=== PATIENT | male | born 1950 | race Caucasian/White ===

== ENCOUNTER 2017-11-30 13:30 | Outpatient (RCR) | payer MEDICARE, SELFPAY ==
--- NOTE | 2017-11-08 14:14 | IE_ITS ---
Date: 11/08/17 Referring: Craig Mccormick MD M.D. Diagnosis: (R) hip OA, TKR and Obesity P.T. Diagnosis: Difficulty walking, difficulty changing positions. SUBJECTIVE: History of Present Illness: Pt describes himself as a recently retired male who used to work in the [employer] industry. He states that he has had years of hip and knee OA but initially he though that his knees were much more of the issue, however within the last year he has noticed that his hips have become incredibly more of an issue with his walking. He struggled with his weight for most of his life he has had a lap band procedure performed in the past and has lost a significant amount of weight from that. However with the significant degeneration of his hip joint he is now a candidate for total hip replacement however it appears that he is struggle to find someone to perform the procedure due to his high BMI. He had a cardiology check up where they wanted to monitor him due to his progressive shortness of breath with activity but he passed the nuclear stress test well and has been clear for exercise involvement. He states that he is more comfortable performing exercises in the pool and he would like to get back to that arrangement. Pain Ratin/10 Prior Level of Function: Walking with only a cane. Current Level of Function: Walking only a couple 100 ft with a walker. Previous Treatment: Nothing yet for this issue. Social: He live sin [facility] with his . Comorbidities: Morbid obesity, significant osteoarthritis. Medications: Medications have been reviewed and you can observe an electronic medical record for full details. Quality of Life: __X__ Good Standardized Measures: LEFS score: __93%__ OBJECTIVE: Posture: In standing, pt is a morbidly obese male with a WBOS, a slightly anterio flexed posture through the trunk. Gait: He ambulates with use of a 4 wheeled rolling walker, he has an increase in his anterioflexed posture through the trunk and widened SOFIYA and virtually no hip extension. He actually circumducts the hip slightly with his swing phase of gait. Palpation: He is tender to palpation through the greater trochanter as well as over the anterior femoral acetabular joint with deep palpation. ROM: Hip flexion 85-90* (B) ER 20* through the (R) and 25* through the (L) with discomfort at end range. Hip IR essentially 0-5* through the (R) side with pain at end range, 10* through the (L) Knee ROM 0* of extension and 90* of flexion. Ankle ROM WNL Strength: Hip flexion 3-/5 (R), 4/5 (L) Quads 4+/5 (B) Hamstrings 4+/5 (B) Dorsiflexion 5/5 Plantarflexion 5/5 Glute Med 3-/5 (B) Neuro: Pt intact to light touch and sensation through LE dermatomes, motor control appears intact through associated myotomes and pt demonstrates appropriate proprioception and kinesthetic awareness. Sit to stand pt is unable to complete a sit to stand from 90 * of knee flexion without use of the hands. 6 minute walk test 231 ft, TUG 42 seconds. Treatment: Tx today included the initial evaluation and assessment of functional abilities as well as training in a formal exercise program. Pt demonstrated verbal acknowledgement and technique demonstration. IE: [id number] Direct treatment time: 60 minutes Total treatment time: 60 minutes ASSESSMENT: Patient is a 67-year-old male with a hx of mild health conditions effecting function, referred for PT services with the diagnosis of hip OA, TKR and Obesity. Patient presents with clinical signs and symptoms consistent with significant mechanical limitation to ambulatory ability due to degenerative changes, as demonstrated by the following impairment level findings: 6 minutes walk test only 231 ft, unable to perform a sit to stand from 90* of knee flexion , TUG 42 seconds, significant strength deficits through the hip flexors and abductors. Impairments are contributing to the following functional limitations : Virtually no long distance ambulation even with four wheeled walker for assisted device. Patient is assessed as: ____ Low 53168 __X__ Moderate 24799 ____ High 54985 complexity, based on the following: History: High BMI, OA, Lap Band procedure Examination: 6 minute walk test 231 ft, TUG 42 seconds, significant strength deficits through the hip and LE. Presentation: X Evolving Decision-Making: X Moderate complexity Disability based on the fact that pt has an LEFS of 93% disability. __X__ Patient requires skilled PT intervention to remediate the above functional limitations to return to: __X__ Premorbid level of function Prognosis: __X__ Good as evidence suggests improvement of functional abilities with compliance to a detailed HEP tailored to his dx and following through with PT intervention. G-Codes: Patient's primary functional limitation is in the category of: __X__ Mobility - walking and moving around : [id number] this is justified by pt only being able to walk 231 ft via 6 minute walk test. Projected goal: __X__ Mobility - walking and moving around: [id number] to return to his premorbid level of function considering age related deficits. STG: __2__ weeks. 1. Pt (I) in HEP both verbally and with ideal technique demonstration. LTG: __6__ weeks. 1. Pt able to negotiate walk up of 1000 ft via 6 minute walk test. 2. Lower TUG time interval to less than 20 seconds. PLAN: Patient to be seen 2 x per week, for 6 weeks, adjusting frequency of visits per patient symptoms and response to treatment. Treatment to include: X Manual therapy - [id number]: Utilized for enhancing muscle extensibility and improving joint arthrokinematics. X Ultrasound/ Estim available for pain modulation as necessary. X Aquatic Therapy- Will be utilized for gravity minimized movement and cardiovascular conditioning. X Therapeutic exercise - [id number] tactile cues, verbal education and advanced movement correctives for establishing muscle control and stability through the core and pelvic girdle. Pt will be monitored for compliance to HEP and pt status will be updated accordingly. Plan may be modified as symptoms dictate. Thank you for this referral. Please do not hesitate to contact me with any questions or concerns regarding this patient's plan of care. Craig Mccormick MD please sign below if you are in agreement with this patients plan of care,
--- NOTE | 2017-11-15 10:33 | PTTR_ITS ---
DATE: 11/14/17 SUBJECTIVE: Rodrigo states that he is looking forward to aquatic therapy, as he has not been able to get much exercise due to pain with land exercise. OBJECTIVE: * [X] Aquatic Therapy - (13605 x2): Patient completed a therapeutic exercise program in an aquatic setting for LE strengthening and general conditioning with decompression for pain relief, as per flow sheet. Patient required skilled instruction for proper exercise performance and to avoid compensatory movement patterns. Patient ends with biking, LE abd/add, and LE flex/ext. Direct treatment time: 30 minutes Total treatment time: 40 minutes
--- NOTE | 2017-11-16 15:41 | PTTR_ITS ---
DATE: 11/16/17 SUBJECTIVE: Vinod states that he felt good, although tired, after his last aquatic therapy session. OBJECTIVE: * [X] Aquatic Therapy - (74227 x1): Patient completed a therapeutic exercise program in an aquatic setting for global strengthening and general conditioning, as per flow sheet. Patient was able to tolerate a progression in his program today, see flow sheet for modifications made to reps and resistance. Patient continues to require cuing for posture and appropriate movement mechanics. Patient ends with deep end biking, LE flex/ext, and LE abd/ add. Direct treatment time: 20 minutes Total treatment time: 40 minutes
--- NOTE | 2017-11-21 13:09 | NT_ITS ---
11/21/17 Patient arrived 20 minutes late for today's scheduled aquatic therapy session. He was given the option to complete part of his program, however, he chose not to, but plans to return for his next scheduled aquatic therapy session. Ileana Wong, SLIVER LAPPER
--- NOTE | 2017-11-23 09:02 | PTTR_ITS ---
DATE: 11/23/17 SUBJECTIVE: Rodrigo states that he has been feeling pretty good following his aquatic therapy sessions. OBJECTIVE: * [X] Aquatic Therapy - (78102 x1): Patient completed a therapeutic exercise program in an aquatic setting for global strengthening and general conditioning, as per flow sheet. Patient tolerated a slight progression in his program today, modifications made to reps are noted on flow sheet. Patient required cuing for core activation and appropriate posture throughout session. Patient ends with deep water biking, LE flex/ext, and LE abd/add. Direct treatment time: 20 minutes Total treatment time: 35 minutes
--- NOTE | 2017-11-27 16:31 | PTTR_ITS ---
DATE: 11/27/17 SUBJECTIVE: I am doing okay. Just trying to figure out the pool. OBJECTIVE: Therapeutic procedures (48742x7). * X HEP review: Technique review and corrective modification where appropriate.] * X Provided skilled instruction in proper exercise performance: [] * X Provided skilled manual cues to facilitate proper muscle recruitment and/ or movement pattern: [] * X Other: Patient completed a 6MWT with instruction and able to ambulate 349 feet with a break at the 3 min kleber. He was trained in intermittent walking and standing walk back hip motions. Direct treatment time: 25 minutes of direct patient care.
--- NOTE | 2017-11-28 11:06 | AT_ITS ---
11/28/17 ATx2 See flow sheet. Complete aquatic therapy routine for whole body conditioning (B ) hip girdle stabilization with focus of (R) hip girdle cardiovascular activities, skilled cueing throughout for proper exercise performance. Made some progressions today. Total Time 60 minutes Direct 30 minutes and able to complete majority of program with minimal supervision as instructed.
--- NOTE | 2017-11-30 14:58 | AT_ITS ---
11/30/17 Aquatic Therapy [id number]: See flow sheet. Skilled cueing required to encourage hip girdle and core utilization vs. dependance on hand. Also progressed to encourage SLS during Hip PRE's activities, vs. returning to static stance between each rep. Patient is able to do warm up and cool down activities with minimal supervision. Direct treatment time: 30 minutes Total treatment time: 60 minutes
== END 2017-12-01 23:59 | disposition home or self-care (01) ==
LOC: PT 13:30
PROVIDERS: PCP Family Medicine; Referring Provider Orthopaedic Surgery; Visit Provider Orthopaedic Surgery
DX: M16.11 Unilateral primary osteoarthritis, right hip (principal); Z96.651 Presence of right artificial knee joint; E66.9 Obesity, unspecified
CPT/HCPCS: 97110; 97113; 97162; G8978

== ENCOUNTER 2018-11-28 15:19 | Outpatient (CLI) | payer MEDICARE, SELFPAY ==
--- NOTE | 2018-11-28 15:25 | DI.RAD_ITS ---
SYMPTOM/DIAGNOSIS: PAIN RIGHT KNEE: Three views. There is marked narrowing of the medial femoral tibial joint space with flattening of the articular surfaces. Para articular spurring is seen involving all three joint compartments. There is an enthesophyte at the superior patella. The bones are intact. IMPRESSION: Moderately severe osteoarthritis of the right knee.
--- NOTE | 2018-11-28 15:35 | DI.RAD_ITS ---
SYMPTOM/DIAGNOSIS: PAIN LEFT KNEE: Three views. There is marked narrowing of the medial femoral tibial joint space with flattening of the articular surfaces. There are osteophytes present at all three joint compartments. No acute fracture or dislocation is identified. Vascular calcifications are seen in the soft tissues. IMPRESSION: Moderately severe degenerative changes of the left knee,
== END 2018-11-28 15:39 ==
PROVIDERS: PCP Family Medicine; Referring Provider Family Medicine; Visit Provider Student in an Organized Health Care Education/Training Program
DX: M25.562 Pain in left knee (principal); M25.561 Pain in right knee; M17.0 Bilateral primary osteoarthritis of knee; I10 Essential (primary) hypertension; E66.9 Obesity, unspecified
CPT/HCPCS: 73562; 99214

== ENCOUNTER 2019-01-17 00:09 | Outpatient (CLI) | payer MEDICARE, SELFPAY ==
--- NOTE | 2019-01-17 06:54 | DI.RAD_ITS ---
EXAM: RF JOINT INJECTION FLUORO GUIDANCE RT AND LEFT HIP CLINICAL HISTORY: RT HIP PAIN, RT HIP OA M16.11. LT HIP PAIN, LT HIP OA, M16.12 TECHNIQUE: Fluoroscopy was provided for guidance with injection. FINDINGS: Please see procedure note for details. RIGHT: FLUORO TIME: 17.5 seconds LEFT: FLUORO TIME: 12.4 seconds
[2019-01-17] MEDS: Omnipaque 300 MG/ML 10 ML BTL 3 ML IJ (16:00)
[2019-01-17] MEDS: Bupivacaine 0.5% Pres-Free 10 ML VIAL IJ (16:00)
[2019-01-17] MEDS: methylPREDNISolone ACETATE 80 MG/ML VIAL 160 MG IM (16:01)
--- NOTE | 2019-01-17 16:30 | W.PROCNOTE ---
Date of service: 01/17/19 Time of Service: 14:30 Procedure Note Date of procedure: 01/17/19 Procedure: Bilateral hip Injection with Fluoroscopic Guidance Surgeon/Proceduralist/Physician: Ghassan Varghese Procedure Diagnosis: Bilateral hip Osteoarthritis Procedure Indications: Rodrigo has had persistent pain of the bilateral hip and groin. Noninvasive measures have been tried. To serve as both diagnostic and therapeutic, an injection under fluoroscopy was recommended. I had discussed the risks of the procedure and the patient elected to proceed. Procedure Description: Rodrigo was greeted in the flouroscopy room. The consent was reviewed with the patient and signed. The patient was then placed in the supine position on the fluoroscopy table. The RIGHT hip was then prepped with Chloraprep. The anterolateral injection starting point was identiifed by bony landmarks and fluoroscopy. The skin and soft tissue in the tract of the injection was anesthetized with 1% Lidocaine. A spinal needle was then inserted deep into the hip joint at the level of the lateral femoral neck under fluoroscopic guidance. A small amount of Omnipaque solution was injected to confirm intraarticular placement. Once confirmed, the hip was injected with 5cc of 0.5% Bupivicaine and 80mg of Depo-Medrol. A bandaid was placed on the injection site. The LEFT hip was then prepped with Chloraprep. The anterolateral injection starting point was identiifed by bony landmarks and fluoroscopy. The skin and soft tissue in the tract of the injection was anesthetized with 1% Lidocaine. A spinal needle was then inserted deep into the hip joint at the level of the lateral femoral neck under fluoroscopic guidance. A small amount of Omnipaque solution was injected to confirm intraarticular placement. Once confirmed, the hip was injected with 5cc of 0.5% Bupivicaine and 80mg of Depo-Medrol. A bandaid was placed on the injection site. The patient tolerated the procedure well and noted improvement in pre-injection pain.
== END 2019-01-17 00:29 ==
PROVIDERS: PCP Family Medicine; Visit Provider Student in an Organized Health Care Education/Training Program
DX: M25.551 Pain in right hip (principal); M25.552 Pain in left hip; M16.0 Bilateral primary osteoarthritis of hip
CPT/HCPCS: 20610 ×2; 77002; J1040

== ENCOUNTER → 2019-01-28 13:12 | Outpatient (BNVA) | payer MEDICARE, SELFPAY | PROVIDERS: PCP Family Medicine; Referring Provider Family Medicine; Visit Provider Student in an Organized Health Care Education/Training Program | DX: M17.12 Unilateral primary osteoarthritis, left knee (principal); M17.11 Unilateral primary osteoarthritis, right knee; M25.561 Pain in right knee; M25.562 Pain in left knee | CPT/HCPCS: 20610; 99213; J1040 ==

== ENCOUNTER 2019-04-29 12:19 | Emergency (ER) | payer MEDICARE, SELFPAY ==
[2019-04-29 12:22] VITALS: BP 130/73; PULSE 66; RESP 22; TEMP 36.2; O2SAT 98
--- NOTE | 2019-04-29 12:31 | ED.GENADUL_ITS ---
Discharge Plan Disposition Patient Disposition: HOME Condition: Stable Discharge Details Chief Complaint: Orthopedic Clinical Impression: Sciatica Primary Care Provider: Jean-Claude Ventura ED Provider: Delia Jacobo Home Meds and New Rx's Prescriptions: New methocarbamol 500 mg tablet 500 mg PO Q6H PRN (Reason: muscle spasm) Qty: 14 RF: 0 prednisone 20 mg tablet See Rx Instructions .ROUTE .COMPLEX Qty: 12 RF: 0 oxycodone 5 mg tablet 5 mg PO Q6H PRN (Reason: pain) Qty: 7 RF: 0 Continued oxybutynin chloride 10 mg tablet extended release 24hr 10 mg PO DAILY RF: 0 allopurinol 300 mg tablet 300 mg PO DAILY RF: 0 finasteride 5 mg tablet 5 mg PO DAILY RF: 0 (DME) Lift Chair Qty: 1 RF: 0 hydrochlorothiazide 25 MG tablet 12.5 mg PO DAILY RF: 0 aspirin [Aspir-81] 81 MG tablet,delayed release (DR/EC) 81 mg PO DAILY RF: 0 terazosin 5 MG capsule 5 mg PO DAILY RF: 0 levothyroxine [Synthroid] 150 MCG tablet 150 mcg PO DAILY RF: 0 atenolol 50 MG tablet 50 mg PO DAILY RF: 0 multivitamin 1 EACH capsule 1 cap PO DAILY RF: 0 ibuprofen 200 mg Capsule 400 mg PO Q6H PRNRF: 0 Discharge Instructions Instructions: Sciatica (ED) Additional Instructions: Alternate ice and heat to the affected area(s) several times daily for 20 minutes at a time. Alternate tylenol and motrin as needed and directed for pain. Take the oxycodone as needed and directed for pain not relieved with Tylenol, motrin, or muscle relaxer. Follow-up with your primary care doctor in 1 week. Return to the emergency department with any worsening or new concerning symptoms such as fever, change in bowel or bladder function, leg weakness or numbness. Discharge Data Discharge Physician: Delia Jacobo Medical Decision Making 69-year-old male with a history of morbid obesity presents with right buttock and hip pain for the past 2 days that started after standing up from a toilet. Patient states the pain is sharp and constant, but much more severe with any movement of his right hip or leg or with weightbearing. He states the pain is in his right buttock. He states it radiates down to his right mid posterior thigh. He denies any urinary or bowel incontinence, saddle anesthesia, leg weakness or numbness. He denies any fever, abdominal pain or urinary symptoms. He took a dose of his 's oxycodone prior to arrival with some relief. He takes ibuprofen regularly for chronic hip pain due to his arthritis and denies any relief with this. Patient has some tenderness to palpation of his right buttock. There is no evidence of trauma, rash or infection. He has reproducible pain in his right buttock with any range of motion of his right hip. There are no obvious deformities or focal deficits and he is neurovascular intact. Patient initially requested a an x-ray but then declined. Discussed that symptom presentation most likely consistent with muscle strain versus sciatica. Other diagnosis can include fracture or disc herniation but these appear less likely. Patient states he feels too uncomfortable to move around for an x-ray. Will give a dose of prednisone, muscle relaxer, Toradol and Lidoderm patch. We will send home with a prescription for prednisone and muscle relaxer. He also requested a prescription for narcotic pain medication. He is advised to follow-up with his primary care doctor for reevaluation and to return here at anytime for worsening symptoms. Medical Records Medical records reviewed: Yes I reviewed the patient's medical records. HPI General Mode of arrival: ambulatory . Date/Time Provider Initiated Documentation: 04/29/19 12:31 . Limitations to Documentation: no limitations . Information obtained by: patient . History of Present Illness 69 year old M presents to the emergency department with the chief complaint of Hip pain , and is localized to the right and lower extremity (Hip and buttock). Patient extremity (To right mid thigh). Patient started experiencing this day(s) (2) and it has been constant. Rest improves symptom(s), Movement worsens symptoms . Patient notes denies fever/chills, headaches, loss of appetite, malaise and nausea/vomiting. Patient did receive the following treatments prior to arrival, other (1 oxycodone without relief) Related Data Home Medications Medication Instructions Recorded Confirmed aspirin [Aspir-81] 81 mg PO DAILY 11/08/13 04/29/19 atenolol 50 mg PO DAILY 11/08/13 04/29/19 hydrochlorothiazide 12.5 mg PO DAILY 11/08/13 01/28/19 levothyroxine [Synthroid] 150 mcg PO DAILY 11/08/13 04/29/19 multivitamin 1 cap PO DAILY 11/08/13 04/29/19 terazosin 5 mg PO DAILY 11/08/13 04/29/19 allopurinol 300 mg tablet 300 mg PO DAILY 11/28/18 04/29/19 finasteride 5 mg tablet 5 mg PO DAILY 11/28/18 04/29/19 oxybutynin chloride 10 mg 10 mg PO DAILY 11/28/18 04/29/19 tablet,extended release 24 hr Lift Chair #1 ea 02/20/19 ibuprofen 400 mg PO Q6H PRN 04/29/19 04/29/19 methocarbamol 500 mg PO Q6H PRN #14 tab 04/29/19 oxycodone 5 mg PO Q6H PRN #7 tab 04/29/19 prednisone See Rx Instructions .ROUTE 04/29/19 .COMPLEX #12 tab Previous Rx's Medication Instructions Recorded Lift Chair #1 ea 02/20/19 methocarbamol 500 mg PO Q6H PRN #14 tab 04/29/19 oxycodone 5 mg PO Q6H PRN #7 tab 04/29/19 prednisone See Rx Instructions .ROUTE 04/29/19 .COMPLEX #12 tab Allergies Allergy/AdvReac Type Severity Reaction Status Date / Time Penicillins Allergy Intermediate Hives Unverified 04/29/19 12:27 General Stated Complaint: Orthopedic RUBA: 3 Review of Systems All systems reviewed & are unremarkable except as noted in HPI and below Constitutional Constitutional: Reports as per HPI, Denies chills and Denies fever(s) Eyes Eyes: Denies blurry vision ENT Ears, Nose, Mouth, and Throat: Denies dizziness, Denies sore throat and Denies throat swelling Cardiovascular Cardiovascular: Denies chest pain and Denies dyspnea Respiratory Respiratory: Denies cough and Denies dyspnea Gastrointestinal Gastrointestinal: Denies abdominal pain, Denies diarrhea and Denies vomiting Genitourinary Genitourinary: Denies hematuria and Denies dysuria Musculoskeletal Musculoskeletal: Reports back pain, Denies numbness and Reports other (Right hip pain ) Integumentary/Breasts Skin/Breast: Denies lesions and Denies rash Neurologic Neurologic: Denies dizziness, Denies focal weakness and Denies numbness Allergic/Immunologic Allergic/Immunologic: Denies throat swelling [facility] Medical History BPH (benign prostatic hyperplasia) CAD (coronary artery disease) History of colon polyps Hypertension Hypothyroidism Morbid obesity Surgical History Colonoscopy - MAC Gastric Bypass lap band Social History Smoking/Tobacco Use Status: Never Alcohol Intake: current Alcohol Intake frequency: a few times a week Drug use: Never Substance use type: does not use Current gender identity: male Do you feel safe at home: Yes Do you feel safe in your relationship?: Yes Exam Const General: cooperative, healthy appearing and no acute distress HENMT Head: normal to inspection Mouth: oral mucosae normal Eyes General: appearance normal, both eyes and all related structures Neck Neck: normal visual inspection Resp Effort & Inspection: normal respiratory effort and able to speak in complete sentences Cardio Rate: regular rate Back/Spine/Pelvis Thoracic/Lumbar Spine: thoracic and lumbar spine normal to inspection, straight leg raise negative bilaterally and No lumbar spinal tenderness Skin General skin exam: no rashes or lesions noted Neuro General: alert, awake, oriented x3, moves all extremities and no focal motor deficits Motor: muscle tone normal throughout and strength 5/5 throughout Sensory Exam: no sensory deficits noted Extrem Other: Tenderness to palpation of right upper buttock. Skin normal to inspection. No tenderness to palpation of right lateral hip. No pain with range of motion in hip. There is reproduction of pain in right upper buttock with range of motion of right lower extremity. Bilateral DP/PT pulses intact. Psych Appearance: grossly normal Affect: normal affect Course Vital Signs Vital signs: Vital Signs Temperature 97.2 F L 04/29/19 12:22 Pulse 66 04/29/19 12:22 Respiratory Rate 22 04/29/19 12:22 Blood Pressure 130/73 04/29/19 12:22 Pulse Oximetry 98 04/29/19 12:22 Temperature 97.2 F L 04/29/19 12:22 Temperature Source Tympanic 04/29/19 12:22 Pulse 66 04/29/19 12:22 Respiratory Rate 22 04/29/19 12:22 Blood Pressure 130/73 04/29/19 12:22 Blood Pressure Position Sitting 04/29/19 12:22 Pulse Oximetry 98 01/27/20 12:22 Oxygen Delivery Method Room Air 04/29/19 12:22 Oxygen Flow Rate 0 04/29/19 12:22 Pain Level 10 04/29/19 12:22
[2019-04-29] MEDS: predniSONE 20 MG TAB 60 MG PO (13:15)
[2019-04-29] MEDS: diazePAM 5 MG TAB PO (13:15)
[2019-04-29] MEDS: Lidocaine 5% Patch 1 PATCH TP (13:17)
[2019-04-29] MEDS: Ketorolac 60 MG/2 ML VIAL IM (13:19)
[2019-04-29 13:38] VITALS: BP 124/78; PULSE 65; RESP 18; O2SAT 99
== END 2019-04-29 13:43 | disposition home or self-care (01) ==
LOC: ER 14:03
PROVIDERS: Emergency Provider Physician Assistant; PCP Family Medicine
DX: M54.31 Sciatica, right side (principal); G89.29 Other chronic pain; E66.01 Morbid (severe) obesity due to excess calories; Z68.43 Body mass index [BMI] 50.0-59.9, adult; I10 Essential (primary) hypertension
CPT/HCPCS: 96372; 99284; J1885; J7512

== ENCOUNTER 2021-03-18 00:56 | Outpatient (CLI) | payer MEDICARE, SELFPAY ==
[2021-03-18] MEDS: Omnipaque 300 MG/ML 10 ML BTL 1.5 ML IJ ×2 (13:47→13:51)
[2021-03-18] MEDS: methylPREDNISolone ACETATE 80 MG/ML VIAL IM ×2 (13:48→13:51)
[2021-03-18] MEDS: Bupivacaine 0.5% Pres-Free 10 ML VIAL 5 ML IJ ×2 (13:49→13:52)
--- NOTE | 2021-03-18 13:52 | DI.RAD_ITS ---
Exam(s) RF JOINT INJECTION FLUORO GUID EXAM: RF JOINT INJECTION FLUORO GUID CLINICAL HISTORY: R HIP PAIN,arthritis rt hip, m16.11, injection under fluoro TECHNIQUE: Fluoroscopy provided. Radiologist not present. CONTRAST MATERIAL: None COMPARISON: CR BILATERAL HIPS ADULT from 09/05/2017 CR BILATERAL HIPS ADULT from 09/05/2017 FINDINGS: Fluoroscopy was provided for Dr. Varghese during right hip injection. Submitted image(s) reveal needle placement at femoral head-neck junction and junction of intra-articu lar contrast. Please refer to the procedure report for complete details. Cumulative Dose: manfred Simeon=10.4 mGy IMPRESSION: RADIATION DOSE DELIVERED:
--- NOTE | 2021-03-18 13:53 | DI.RAD_ITS ---
Exam(s) RF JOINT INJECTION FLUORO GUID EXAM: RF JOINT INJECTION FLUORO GUID CLINICAL HISTORY: L HIP PAIN,arthritis lt hip, m16.12, injection under fluoro TECHNIQUE: Fluoroscopy provided. Radiologist not present. CONTRAST MATERIAL: None COMPARISON: No exams were available for comparison FINDINGS: Fluoroscopy was provided for Dr. Varghese during left hip injection. Submitted image(s) reveal needle tip at the level of the left femoral neck. Contrast injected Please refer to the procedure report for complete details. Cumulative Dose: manfred Simeon=5.86 mGy IMPRESSION: RADIATION DOSE DELIVERED:
--- NOTE | 2021-03-18 14:06 | OPPNE_ITS ---
Date of service: 03/18/21 Time of Service: 13:28 Procedure Note Date of procedure: 03/18/21 Procedure: Bilateral Hip Injection with Fluoroscopic Guidance Surgeon/Proceduralist/Physician: Ghassan Varghese Procedure Diagnosis: Bilateral Hip Osteoarthritis Procedure Indications: Vinod has had recurrent pain of the bilateral hip and groin. Noninvasive measures have been tried. He had previous success with injetions of the hips. To serve as both diagnostic and therapeutic, an injection under fluoroscopy was recommended. I had discussed the risks of the procedure and the patient elected to proceed. Procedure Description: Vinod was greeted in the flouroscopy room. The consent was reviewed with the patient and signed. The patient was then placed in the supine position on the fluoroscopy table. The RIGHT hip was then prepped with Chloraprep. The anterolateral injection starting point was identiifed by bony landmarks and fluoroscopy, unfortunately right in the pannus fold. The skin and soft tissue in the tract of the injection was anesthetized with 1% Lidocaine. A spinal needle was then inserted deep into the hip joint at the level of the lateral femoral neck under fluoroscopic guidance. A small amount of Omnipaque solution was injected to confirm intraarticular placement. Once confirmed, the hip was injected with 5cc of 0.5% Bupivicaine and 80mg of Depo- Medrol. A bandaid was placed on the injection site. The patient tolerated the procedure well. The LEFT hip was then prepped with Chloraprep. The anterolateral injection starting point was identiifed by bony landmarks and fluoroscopy. The skin and soft tissue in the tract of the injection was anesthetized with 1% Lidocaine. A spinal needle was then inserted deep into the hip joint at the level of the lateral femoral neck under fluoroscopic guidance. A small amount of Omnipaque solution was injected to confirm intraarticular placement. Once confirmed, the hip was injected with 5cc of 0.5% Bupivicaine and 80mg of Depo-Medrol. A bandaid was placed on the injection site. The patient tolerated the procedure well.
== END 2021-03-18 01:16 ==
PROVIDERS: PCP Family Medicine; Visit Provider Student in an Organized Health Care Education/Training Program
DX: M16.11 Unilateral primary osteoarthritis, right hip (principal); M16.12 Unilateral primary osteoarthritis, left hip; M25.551 Pain in right hip; M25.552 Pain in left hip; R10.31 Right lower quadrant pain; R10.32 Left lower quadrant pain
CPT/HCPCS: 20610; 77002; J1040

== ENCOUNTER → 2021-03-22 09:17 | Outpatient (BNVA) | payer MEDICARE, SELFPAY | PROVIDERS: PCP Family Medicine; Referring Provider Family Medicine | DX: M17.12 Unilateral primary osteoarthritis, left knee (principal); M17.11 Unilateral primary osteoarthritis, right knee; E66.9 Obesity, unspecified | CPT/HCPCS: 20610; 99214; J1040 ==

== ENCOUNTER → 2021-10-07 09:32 | Outpatient (BNVA) | payer MEDICARE, SELFPAY | PROVIDERS: PCP Family Medicine; Referring Provider Family Medicine; Visit Provider Physician Assistant | DX: M17.11 Unilateral primary osteoarthritis, right knee (principal); M17.12 Unilateral primary osteoarthritis, left knee | CPT/HCPCS: 20610; J1040 ==

== ENCOUNTER → 2021-10-21 00:22 | Outpatient (CLI) | payer MEDICARE, SELFPAY ==
--- NOTE | 2021-10-21 08:00 | DI.RAD_ITS ---
Exam(s) RF JOINT INJECTION FLUORO GUID EXAM: RF JOINT INJECTION FLUORO GUID CLINICAL HISTORY: L HIP PAIN, ARTHRITIS, M16.12 TECHNIQUE: Fluoroscopy provided. Radiologist not present. CONTRAST MATERIAL: None COMPARISON: No exams were available for comparison FINDINGS: Fluoroscopy was provided for therapeutic left hip injection. Submitted image(s) reveal intra-articular position of the needle Please refer to the procedure report for complete details. Cumulative Dose: Ka,r=63.5 mGy IMPRESSION: RADIATION DOSE DELIVERED:
--- NOTE | 2021-10-21 08:00 | DI.RAD_ITS ---
Exam(s) RF JOINT INJECTION FLUORO GUID EXAM: RF JOINT INJECTION FLUORO GUID CLINICAL HISTORY: L HIP PAIN, ARTHRITIS, M16.12 TECHNIQUE: Fluoroscopy provided. Radiologist not present. CONTRAST MATERIAL: None COMPARISON: No exams were available for comparison FINDINGS: Fluoroscopy was provided for therapeutic right hip injection. Submitted image(s) reveal intra-articular position of the needle Please refer to the procedure report for complete details. Cumulative Dose: Ka,r=73.8 mGy IMPRESSION: RADIATION DOSE DELIVERED:
[2021-10-21] MEDS: Omnipaque 300 MG/ML 10 ML BTL 2 ML IJ (13:56)
[2021-10-21] MEDS: methylPREDNISolone ACETATE 80 MG/ML VIAL 160 MG IM (13:57)
[2021-10-21] MEDS: Bupivacaine 0.5% Pres-Free 30 ML VIAL 10 ML IJ (13:57)
--- NOTE | 2021-10-21 14:13 | W.PROCNOTE ---
Date of service: 10/21/21 Time of Service: 14:13 Procedure Note Date of procedure: 10/21/21 Procedure: Bilateral Hip Injection with Fluoroscopic Guidance Surgeon/Proceduralist/Physician: Ghassan Varghese Procedure Diagnosis: Bilateral Hip Osteoarthritis Procedure Indications: Vinod has had persistent pain of the BILATERAL hip and groin. Noninvasive measures have been tried. He has had success with previous hip injection and thus an injection under fluoroscopy was recommended. I had discussed the risks of the procedure and the patient elected to proceed. Procedure Description: Vinod was greeted in the flouroscopy room. The consent was reviewed with the patient and signed. The patient was then placed in the supine position on the fluoroscopy table. The RIGHT hip was then prepped with Chloraprep. The anterolateral injection starting point was identiifed by bony landmarks and fluoroscopy. The skin and soft tissue in the tract of the injection was anesthetized with 1% Lidocaine. A spinal needle was then inserted deep into the hip joint at the level of the lateral femoral neck under fluoroscopic guidance. A small amount of Omnipaque solution was injected to confirm intraarticular placement. Once confirmed, the hip was injected with 5cc of 0.5% Bupivicaine and 80mg of Depo-Medrol. A bandaid was placed on the injection site. The LEFT hip was then prepped with Chloraprep. The anterolateral injection starting point was identiifed by bony landmarks and fluoroscopy. The skin and soft tissue in the tract of the injection was anesthetized with 1% Lidocaine. A spinal needle was then inserted deep into the hip joint at the level of the lateral femoral neck under fluoroscopic guidance. A small amount of Omnipaque solution was injected to confirm intraarticular placement. Once confirmed, the hip was injected with 5cc of 0.5% Bupivicaine and 80mg of Depo-Medrol. A bandaid was placed on the injection site. The patient tolerated the procedure well.
== END ==
PROVIDERS: PCP Family Medicine; Visit Provider Student in an Organized Health Care Education/Training Program
DX: M16.11 Unilateral primary osteoarthritis, right hip (principal); M16.12 Unilateral primary osteoarthritis, left hip; M25.551 Pain in right hip; M25.552 Pain in left hip
CPT/HCPCS: 20610; 77002; J1040

== ENCOUNTER 2022-04-07 01:11 | Outpatient (CLI) | payer MEDICARE, SELFPAY ==
--- NOTE | 2022-04-07 14:04 | DI.RAD_ITS ---
Exam(s) RF JOINT INJECTION FLUORO GUID EXAM: RF JOINT INJECTION FLUORO GUID CLINICAL HISTORY: pain,arthritis of hip, m16.11,m16.12, fluoro guided injection TECHNIQUE: Fluoroscopy provided. Radiologist not present. CONTRAST MATERIAL: None COMPARISON: No exams were available for comparison FINDINGS: Fluoroscopy was provided for Dr. Varghese during right hip injection. Submitted image(s) reveal Please refer to the procedure report for complete details. Cumulative Dose: manfred Simeon=4.63 mGy IMPRESSION: RADIATION DOSE DELIVERED:
[2022-04-07] MEDS: Bupivacaine 0.5% Pres-Free 10 ML VIAL 5 ML IJ ×2 (14:27→14:58)
[2022-04-07] MEDS: Omnipaque 300 MG/ML 10 ML BTL 3 ML IJ ×2 (14:28→14:58)
[2022-04-07] MEDS: methylPREDNISolone ACETATE 80 MG/ML VIAL IM ×2 (14:28→14:59)
--- NOTE | 2022-04-07 14:57 | DI.RAD_ITS ---
Exam(s) RF JOINT INJECTION FLUORO GUID EXAM: RF JOINT INJECTION FLUORO GUID CLINICAL HISTORY: pain,arthritis lt hip,fluoro guided injection,m16.12 TECHNIQUE: Fluoroscopy provided. Radiologist not present. CONTRAST MATERIAL: None COMPARISON: No exams were available for comparison FINDINGS: Fluoroscopy was provided for Dr. Varghese during left hip injection. Please refer to the procedure report for complete details. Cumulative Dose: Ka,r=0.73 mGy IMPRESSION: RADIATION DOSE DELIVERED:
--- NOTE | 2022-04-08 13:47 | W.PROCNOTE ---
Date of service: 04/07/22 Time of Service: 14:20 Procedure Note Date of procedure: 04/07/22 Procedure: Bilateral Hip Injection with Fluoroscopic Guidance Surgeon/Proceduralist/Physician: Ghassan Varghese Procedure Diagnosis: Bilateral Hip Osteoarthritis Procedure Indications: Vinod has had persistent pain of the BILATERAL hip and groin. Noninvasive measures have been tried. To serve as both diagnostic and therapeutic, an injection under fluoroscopy was recommended. He has had success with previous injections. I had discussed the risks of the procedure and the patient elected to proceed. Procedure Description: Vinod was greeted in the flouroscopy room. The consent was reviewed with the patient and signed. The patient was then placed in the supine position on the fluoroscopy table. The RIGHT hip was then prepped with Chloraprep. The anterolateral injection starting point was identiifed by bony landmarks and fluoroscopy. The skin and soft tissue in the tract of the injection was anesthetized with 1% Lidocaine. A spinal needle was then inserted deep into the hip joint at the level of the lateral femoral neck under fluoroscopic guidance. A small amount of Omnipaque solution was injected to confirm intraarticular placement. Once confirmed, the hip was injected with 5cc of 0.5% Bupivicaine and 80mg of Depo-Medrol. A bandaid was placed on the injection site. The LEFT hip was then prepped with Chloraprep. The anterolateral injection starting point was identiifed by bony landmarks and fluoroscopy. The skin and soft tissue in the tract of the injection was anesthetized with 1% Lidocaine. A spinal needle was then inserted deep into the hip joint at the level of the lateral femoral neck under fluoroscopic guidance. A small amount of Omnipaque solution was injected to confirm intraarticular placement. Once confirmed, the hip was injected with 5cc of 0.5% Bupivicaine and 80mg of Depo-Medrol. A bandaid was placed on the injection site. The patient tolerated the procedure well.
== END 2022-04-07 01:31 ==
LOC: DI 01:12
PROVIDERS: PCP Family Medicine; Visit Provider Student in an Organized Health Care Education/Training Program
DX: M16.11 Unilateral primary osteoarthritis, right hip (principal); M16.12 Unilateral primary osteoarthritis, left hip; M25.551 Pain in right hip; M25.552 Pain in left hip
CPT/HCPCS: 20610; 20611; 77002; J1040

== ENCOUNTER → 2022-05-09 14:18 | Outpatient (BNVA) | payer MEDICARE, SELFPAY | PROVIDERS: PCP Family Medicine; Referring Provider Family Medicine; Visit Provider Student in an Organized Health Care Education/Training Program | DX: M17.11 Unilateral primary osteoarthritis, right knee (principal); M17.12 Unilateral primary osteoarthritis, left knee | CPT/HCPCS: 20610; J1040 ==

== ENCOUNTER → 2023-09-07 13:48 | Outpatient (BNVA) | payer MEDICARE, SELFPAY | PROVIDERS: PCP Family Medicine; Referring Provider Family Medicine; Visit Provider Student in an Organized Health Care Education/Training Program | DX: M16.11 Unilateral primary osteoarthritis, right hip (principal); M16.12 Unilateral primary osteoarthritis, left hip | CPT/HCPCS: 20611; J1010 ==

== ENCOUNTER → 2023-09-21 09:31 | Outpatient (BNVA) | payer MEDICARE, SELFPAY | PROVIDERS: PCP Family Medicine; Referring Provider Family Medicine | DX: M17.11 Unilateral primary osteoarthritis, right knee (principal); M17.12 Unilateral primary osteoarthritis, left knee | CPT/HCPCS: 20610; J1010 ==